=== PATIENT | female | born 1950 ===

== ENCOUNTER 2025-04-11 09:54 | Outpatient (AMB) | payer OTHER, MEDICAID, SELFPAY ==
--- NOTE | 2025-04-11 10:01 | A.OFFVIS_ITS ---
Intake Visit Reasons: Memory loss Allergies No Known Allergies Allergy (Verified 04/05/25 13:47) HPI Comments Details: This is a 74-year-old woman with a history of hypertension and hyperlipidemia who speaks Cuban and is here with her daughter for evaluation of forgetfulness and progressive dementia noted in the last 1 year. She has a strong family history of dementia in her mother, 4 maternal uncles and an older sister in the last year she has been noted due to have progressive forgetfulness. She needs reminders for her medications. She is unable to handle her finances. She eats fairly well and her weight is stable. She has disturbed sleep and wakes up and walks around in the night. She has some pains and worries a lot. She has some bladder control problems for which she is seeing a urologist. She recognizes family members that she sees frequently. She has not had any neurological workup so far. She has some difficulty walking because of right knee pain. [facility] Medical History (Updated 04/11/25 @ 10:15 by Lara Clancy MD) Palpitations Memory loss Urge incontinence Hypercholesteremia Hypertension Review of Systems Const Details: ?Sleep Difficulty getting to sleep??denies.??Difficulty maintaining sleep??denies?.?? Urge to move legs??denies.??Teeth grinding??denies.??Shouting or Kicking during sleep??denies.??Abnormal behavior during sleep??denies.??Excessive sleep??denies.??Snoring??denies.??Daytime sleepiness??denies.? General/Constitutional Change in appetite??denies.??Chills??denies.??Fatigue??denies.??Fever??denies.?? Weight gain??denies.??Weight loss??denies.? Ophthalmologic Blurred vision??denies.??Diminished visual acuity??denies.? ENT Stuffiness??denies.??Decreased hearing??denies.??Dry mouth??denies.??Ear pain??denies.??Nosebleed??denies.??Ringing in the ears??denies.??Sinus pain ??denies.??Sore throat??denies.??Swollen glands??denies.? Endocrine Cold intolerance??denies.??Excessive thirst??denies.??Frequent urination ??denies.??Heat intolerance??denies.? Respiratory Shortness of breath??denies.??Chest pain??denies.??Cough??denies.? Breast Breast lump??denies.??Nipple discharge??denies.? Cardiovascular Chest pain at rest??denies.??Chest pain with exertion??denies.??Claudication ??denies.??Fluid accumulation in the legs??denies.??Irregular heartbeat ??denies.??Palpitations??yes.? Gastrointestinal Abdominal pain??denies.??Constipation??denies.??Diarrhea??denies.??Heartburn ??denies.??Nausea??denies.??Rectal bleeding??denies.? Hematology Easy bruising??denies.??Prolonged bleeding??denies.? Genitourinary Frequent urination??denies.??Urgency??denies.??Incontinence??denies.??Erectile Dysfunction??denies.? Musculoskeletal Neck pain??denies.??Back pain??denies.??Muscle aches??denies.??Painful joints??denies.? Neurologic Difficulty swallowing??denies.??Balance difficulty??denies.??Coordination ??normal.??Difficulty speaking??denies.??Dizziness??denies.??Fainting ??denies.??Gait abnormality??denies.??Headache??denies.??Loss of strength ??denies.??Loss of use of extremity??denies.??Memory loss??yes.??Seizures ??denies.??Tics??denies.??Tingling/Numbness??denies.??Transient loss of vision ??denies.??Tremor??denies.? Psychiatric Anxiety??denies.??Auditory/visual hallucinations??denies.??Delusions ??denies.??Depressed mood??denies.??Stressors??denies.??Substance abuse ??denies.??Suicidal thoughts??denies.? Eyes Details: fatigue Card Reports irregular heart rhythm Neuro Reports confusion and Reports memory loss Psych Reports confusion and Reports memory loss Physical Exam Const General: confusion Orientation/consciousness: confusion Neuro Other: Mini Mental Status Exam Level of Consciousness:?Alert.? Orientation:?Does not Know correct year, month, date, knows day and season.?Not Know correct city, county and state. ? Registration:?Able to register 3 objects.?Unable to draw clock face Attention:?Serial 7's unable Recall:?Able to recall 2 out of 3 objects.? Language:?Normal spontaneous speech, fluency, repetition, naming, comprehension, reading, and writing.? Total Score:?20/30.? Neurological Abnormal neurological findings:??MMS 20/30 Mental Status:?Alert and oriented X person only.?Normal attention, affect.? Cranial Nerves:?Pupils are equal, round and reactive to light. Fundoscopy shows normal disc bilaterally. External occular muscles are intact. Visual jones are full, no ptosis. Face is symmetrical, no facial weakness or droop. Facial sensations are normal. Tongue protrudes in midline. Palate elevates symmetrically. Shoulder shrugging is normal.? Motor Examination:?Normal muscle tone, bulk and strength.?No atrophy or fasciculations.?No drift of the extended upper extremities.?Deep tendon reflexes are 2+.?Plantars are flexor.? Motor Strength:? Proximal Muscles (out of 5):?5 Distal Muscles (out of 5):?5 Neck Flexors (out of 5):?5 Neck Extensors (out of 5):?5 Deltoid (out of 5):?5 Biceps (out of 5):?5 Triceps (out of 5):?5 Serratus Anterior (out of 5):?5 Wrist Extensors (out of 5):?5 APB (out of 5):?5 Finger Spread (out of 5):?5 Ileopsoas (out of 5):?5 Quadriceps (out of 5):?5 Hamstrings (out of 5):?5 Tibialis Anterior (out of 5):?5 Peronei (out of 5):?5 EDB (out of 5):?5 Gastrocnemius (out of 5):?5 Straight Leg Raising:?90 degrees.? Sensory Exam:?Normal light touch, temperature, pinprick, vibration and joint-position sensations.?Rhomberg sign is absent.? Coordination:?No ataxia,?no titubation,?mpmglr-nh-yeqa, gvwm-zeqi-ctdi test, and rapid alternating movements were normal.? Gait Exam:?Within normal limits.? Cerebellar Signs:?Ylvgis-dl-rslm and doau-ra-yaoz is normal.?No dysdiadochokinesia.? Extrapyramidal System:?No tremor or?rigidity, normal facial expressions.?No bradykinesia. No bradyphrenia. Normal arm swing and posture. No propulsion or retropulsion.? Speech:?Normal,?no dysphasia or dysarthria.? General Examination GENERAL APPEARANCE:??normal,?in no acute distress?,?normal,?in no acute distress.? HEAD:??normocephalic,?atraumatic.? EYES:??sclera non-icteric,?conjunctiva clear.? EARS:??auditory canal clear,?tympanic membrane intact, clear.? NOSE:??no lesions.? ORAL CAVITY:??gums normal,?mucosa moist,?no lesions.? THROAT:??clear.? NECK/THYROID:??no cervical lymphadenopathy,?thyroid normal,?neck supple, full range of motion,?no carotid bruit.? SKIN:??no rashes,?no significant birthmarks.? HEART:??S1, S2 normal,?no murmurs?,?S1, S2 normal,?no murmurs.? LUNGS:??clear anteriorly and posteriorly?,?clear anteriorly and posteriorly.? CHEST:??no gross rib deformity,?clear to auscultation.? BACK:??normal exam of spine.? MUSCULOSKELETAL:??normal.? EXTREMITIES:??no edema?,?no edema.? PERIPHERAL PULSES:??normal.? PSYCH:??alert, oriented,?cognitive function intact,?cooperative with exam?,?alert, oriented,?cognitive function intact,?cooperative with exam.? General: confusion Assessment & Plan Assessment & Plan (1) Alzheimer dementia: Code(s): G30.9 - Alzheimer's disease, unspecified; F02.80 - Dementia in other diseases classified elsewhere, unspecified severity, without behavioral disturbance, psychotic disturbance, mood disturbance, and anxiety Category: Medical (2) Memory loss: Code(s): R41.3 - Other amnesia Category: Medical (3) Hypertension: Code(s): I10 - Essential (primary) hypertension Category: Medical Plan Work up for dementia, then consider adding Donepezil/ Memantine Orders: Orders MR head/brain wo con 6 Weeks F02.80 - Dementia in other diseases classified elsewhere, unspecified severity, without behavioral disturbance, psychotic disturbance, mood disturbance, and anxiety, G30.9 - Alzheimer's disease, unspe cified EEG electroencephalogram Today F02.80 - Dementia in other diseases classified elsewhere, unspecified severity, without behavioral disturbance, psychotic disturbance, mood disturbance, and anxiety, G30.9 - Alzheimer's disease, unspecified TSH reflex Free T4 Today R41.3 - Other amnesia Basic Metabolic Panel Today R41.3 - Other amnesia Vitamin B12 and Folate Today R41.3 - Other amnesia Coding Level of Care Code New Pt Level 5 (49185) Diagnoses Alzheimer dementia G30.9; F02.80 Memory loss R41.3 Hypertension I10
--- OUTSIDE RECORDS SUMMARY | 2025-04-11 10:32 | XMS_ITS | Clinical Summary ---
Author Organization 175 [facility] Address [address] [place] [address] Phone Care Team Providers Care Electronic Warfare Technical Name Role Phone Michael Amin MD Primary Care Provider [phone] Allergies No known active allergies Medications cyanocobalamin (VITAMIN B-12) 1,000 mcg tablet Take 1 tablet (1,000 mcg total) by mouth 1 (one) time each day. 30 each 11 11/20/2024 Active lisinopril (PRINIVIL,ZESTRI L) 40 mg tablet Take 1 tablet (40 mg total) by mouth 1 (one) time each day. 90 tablet 1 02/20/2025 Active rosuvastatin (CRESTOR) 20 mg tablet Take 1 tablet (20 mg total) by mouth 1 (one) time each day. 90 tablet 1 02/20/2025 Active Active Problems Problem Noted Date Diagnosed Date Mixed hyperlipidemia 03/01/2025 Primary hypertension 03/01/2025 Encounters Date Type Department Care Team Description 03/01/2025 10:00 AM EDT Office Visit Internal Medicine - [place] [address] [facility] [address] [place] [address] Michael Amin MD Medicare annual wellness visit, subsequent (Primary Dx); Other fatigue; Vitamin D deficiency; Other abnormal glucose; Routine general medical examination at a health care facility; Mixed hyperlipidemia; Primary hypertension; Encounter for screening mammogram for malignant neoplasm of breast; Postmenopausal state; Actinic keratosis from Last 3 Months Immunizations Name Administration Dates Next Due Pneumococcal conjugate 20 va lent (Prevnar 20, PCV 20) 2mo and older 03/01/2025 Tdap Tetanus diptheria acell ular pertussis (Boostrix; Adacel) 7yo and older 03/01/2025 Social History Tobacco Use Types Packs/Day Years Used Date Smoking Tobacco: Never Assessed Comments Unknown Sex and Gender Information Value Date Recorded Sex Assigned at Female 09/12/2024 12:33 PM EST Legal Sex Female 11:38 AM EDT Gender Identity Female 09/12/2024 12:33 PM EST Sexual Orientation Straight 03/05/2025 9: 31 AM EDT Last Filed Vital Signs Vital Sign Reading Time Taken Comments Blood Pressure 102/60 03/01/2025 10:02 AM EDT Pulse 79 03/01/2025 10:02 AM EDT Temperature 36.4 C (97.6 F) 11/16/2024 2:42 PM EDT Respiratory Rate - - Oxygen Saturation 98% 03/01/2025 10:02 AM EDT Inhaled Oxygen Concentration - - Weight 68.5 kg (151 lb) 03/01/2025 10:02 AM EDT Height 160 cm (5' 3 ) 11/16/2024 2:42 PM EDT Body Mass Index 26.75 11/16/2024 2:42 PM EDT Plan of Treatment Upcoming Encounters Date Type Department Care Team (Late st Contact Info) Description 04/24/2025 9:00 AM EDT Appointment [facility] Bone Density [address] [place] [phone] 05/22/2025 8:30 AM EDT Appointment [facility] Endoscopy [address] [place] [address] Leandro Butler DO 175 [facility] [address] [place] [id number] 09/03/2025 9:45 AM EST Office Visit Internal Medicine - [place] [address] [phone] Michael Amin MD [address] [address] Health Maintenance Due Date Last Done Comments Breast Cancer Screening 1950 COVID-19 Vaccine (#1) 1956 Zoster Vaccines (1 of 2) 1970 Colorectal Cancer Screening: Colonoscopy 06/24/2024 Hepatitis C Screening 06/24/2024 Osteoporosis Screening (Bone Density Screening) 06/24/2024 Influenza Vaccine (#1) 2025 Hypertension/CHF/CAD Annual BMP Blood Test 11/20/2025 11/20/2024 Falls Risk Assessment 03/01/2026 03/01/2025 , 03/01/2025 Medicare Annual Wellness Visit 03/01/2026 03/01/2025 Social Influencers of Health Screening 03/01/2026 03/01/2025 RSV Immunization Adult Patients (1 - 1-dose 75+ series) 2026 Cholesterol Screening (Lipid Panel) 11/20/2029 11/20/2024 DTaP,Tdap,and Td Vaccines (2 - Td or Tdap) 03/01/2035 03/01/2025 Depression Screening Completed 03/01/2025 Pneumococcal Vaccine: 50+ Years Completed 03/01/2025 HIB Vaccines Aged Out No longer eligi ble based on patient's age to complete this topic HPV Vaccines Aged Out No longer eligi ble based on patient's age to complete this topic Hepatitis A Vaccines Aged Out No long er eligible based on patient's age to complete this topic Hepatitis B Vaccines Aged Out No long er eligible based on patient's age to complete this topic IPV Vaccines Aged Out No longer eligi ble based on patient's age to complete this topic MMR Vaccines Aged Out No longer eligi ble based on patient's age to complete this topic Meningococcal ACWY Vaccine Aged Out N o longer eligible based on patient's age to complete this topic Meningococcal B Vaccine Aged Out No l onger eligible based on patient's age to complete this topic RSV Immunization Patients Under 20 months Aged Out No longer eligible b ased on patient's age to complete this topic Varicella Vaccines Aged Out No longer eligible based on patient's age to complete this topic Procedures Procedure Name Priority Date/Time Associated Diagnosis Comments COMPREHENSIVE METABOLIC PANEL Routine 11/20/2024 9:22 AM EDT Primary hypertension Hypercholesterolem ia Urge incontinence Memory loss Palpitation LIPID PANEL WITH REFLEX TO DIRECT LDL Routine 11/20/2024 9:22 AM EDT Primary hypertension Hypercholesterolem ia Urge incontinence Memory loss Palpitation from Last 3 Months or Most Recently Relevant to Health Maintenance Results * Lipid panel with reflex to direct LDL (11/20/2024 9:22 AM EDT) Cholesterol 182 0 - 200 mg/dL LAB CHEMISTRY METHOD 11/20/2024 1:18 PM EDT [facility] Triglycerides 81 0 - 150 mg/dL LAB CHEMISTRY METHOD 11/20/2024 1:18 PM EDT [facility] HDL 76 >=40 mg/dL LAB CHEMISTRY METHOD 11/20/2024 1:18 PM EDT [facility] LDL Calculated 90 0 - 100 mg/dL LAB CHEMISTRY METHOD 11/20/2024 1:18 PM EDT [facility] VLDL Cholesterol Luke 16.2 mg/dL LAB CHEMISTRY METHOD 11/20/2024 1:18 PM EDT [facility] Non HDL Chol. (LDL+VLDL) 106 <145 mg/dL LAB CHEMISTRY METHOD 11/20/2024 1:18 PM EDT [facility] Chol/HDL Ratio 2.4 0.0 - 4.4 LAB CHEMISTRY METHOD 11/20/2024 1:18 PM EDT [facility] Blood Venous blood specimen / Unknown Venipuncture / Unknown 11/20/2024 9:22 AM EDT 11/20/2024 10:48 AM EDT us Elder Lui MD LAB BLOOD ORDERABLES Final Resul t [facility] [address] [place] [address], [place] [phone] * Comprehensive metabolic panel (11/20/2024 9:22 AM EDT) Sodium 143 133 - 145 mmol/L LAB CHEMISTRY METHOD 11/20/2024 1:18 PM [facility] Potassium 4.3 3.5 - 5.5 mmol/L LAB CHEMISTRY METHOD 11/20/2024 1:18 PM [facility] Chloride 108 96 - 110 mmol/L LAB CHEMISTRY METHOD 11/20/2024 1:18 PM [facility] CO2 29 21 - 32 mmol/L LAB CHEMISTRY METHOD 11/20/2024 1:18 PM [facility] Anion Gap 6 3 - 11 LAB CHEMISTRY METHOD 11/20/2024 1:18 PM [facility] Glucose 90 70 - 100 mg/dL LAB CHEMISTRY METHOD 11/20/2024 1:18 PM [facility] BUN 14 5 - 25 mg/dL LAB CHEMISTRY METHOD 11/20/2024 1:18 PM [facility] Creatinine 0.96 0.50 - 1.10 mg/dL LAB CHEMISTRY METHOD 11/20/2024 1:18 PM [facility] eGFR 63 >=60 mL/min/1. 73m2 LAB CHEMISTRY METHOD 11/20/2024 1:18 PM [facility] Comment:Calculation based on the Chronic Kidney Disease Epidemiology Collaboration (CKD-EPI) equation refit without adjustment for race. BUN/Creatinine Ratio 14.6 LAB CHEMISTRY METHOD 11/20/2024 1:18 PM [facility] Calcium 9.2 8.5 - 10.5 mg/dL LAB CHEMISTRY METHOD 11/20/2024 1:18 PM [facility] AST (SGOT) 25 10 - 42 unit/L LAB CHEMISTRY METHOD 11/20/2024 1:18 PM [facility] ALT (SGPT) 28 10 - 60 unit/L LAB CHEMISTRY METHOD 11/20/2024 1:18 PM [facility] Alkaline Phosphatase 89 42 - 121 unit/L LAB CHEMISTRY METHOD 11/20/2024 1:18 PM EDT [facility] Total Protein 6.5 6.0 - 8.0 g/dL LAB CHEMISTRY METHOD 11/20/2024 1:18 PM EDT [facility] Albumin 3.5 3.2 - 5.0 g/dL LAB CHEMISTRY METHOD 11/20/2024 1:18 PM EDT [facility] Total Bilirubin 0.5 0.0 - 1.4 mg/dL LAB CHEMISTRY METHOD 11/20/2024 1:18 PM EDT [facility] Blood Venous blood specimen / Unknown Venipuncture / Unknown 11/20/2024 9:22 AM EDT 11/20/2024 10:48 AM EDT us Elder Lui MD LAB BLOOD ORDERABLES Final Resul t [facility] [address] [place] [address], from Last 3 Months or Most Recently Relevant to Health Maintenance Insurance [employer] MEDICARE ADVANTAGE on file MEDICAID - [place] Advance Directives * Full Code - Confirmed (Latest Code Status on File) Date Activated Date Inactivated Comments 03/01/2025 10:24 AM This code stat us was ascertained in the following way: Code status discussion: discussion with patient To update the patient's code status, place a code status order. Do not modify or discontinue any currently active code status orders. Care Teams Electronic Warfare Technical Relationship Specialty Start Date End Date Michael Amin MD [address] [place] [address] PCP - General 02/01/24
--- OUTSIDE RECORDS SUMMARY | 2025-04-11 10:32 | XMS_ITS | Patient Health Record ---
Author Organization [facility] Address [address] [place] [address] Care Team Providers Care Associate Professor Of Engineering Name Role Phone TERRY DON Unavailable [phone] Allergies No Known Allergies Reason For Referral No Information Medications Medication SIG (Take, Route, Frequency, Duration) Notes Start Date End Date Status Benzonatate 200 MG 1 capsule as needed Orally Three times a day; Duration: 10 days 09/15/2024 Active Paxlovid (300/100) 20 x 150 MG & 10 x 100MG 3 tablets Orally Twice a day; Duration: 5 day(s) 09/15/2024 Active Social History Tobacco Use: Social History Observation Description Date Details (start date - stop date) Never Smoker NA - NA Tobacco Control (Standard) Question Answer Notes Tobacco use: Nonsmoker Vital Signs Height 66 in 09/15/2024 Patient Reported Normal Blood Pressure Patient Reported Normal Temperature Weight 159 lbs 09/15/2024 Patient Reported Normal Blood Pressure Patient Reported Normal Temperature BMI 25.66 kg/m2 09/15/2024 Patient Reported Normal Blood Pressure Patient Reported Normal Temperature Encounters Encounter Location Date Provider Diagnosis [facility] [address] [place] [address] 09/15/2024 TERRY DON COVID-19 U07.1 Assessments Encounter Date Diagnosis (ICD Code) Assessment Notes Treatment Notes Treatment Clinical Notes Section Notes 09/15/2024 COVID-19 (ICD-10 - U07.1) TREATMENT PLAN: HIGHER RISK PATIENTS This is a higher risk patient with mild COVID symptoms for <5 days. The positive test is self reported from an over the counter test. There are no known major contraindications or medication interactions with paxlovid. Specific details of vaccination status and natural immune status unknown. The history provided is limited and medical decisions are made based on this information alone. If you are over the age of 65, you have never been vaccinated or revaccinated, have diabetes/lung disease/hypertension /heart disease or are obese or immunocomprised it is recommended to consider an antiviral. 1. Will prescribe paxlovid 300-100mg twice daily for 5 days. Please be aware if you have not given us all of your daily medications, there may be medication interactions that are serious with this medicine. Paxlovid is to be taken at the patients discretion and not a strong recommendation on my behalf. COVID for the vast majority of patients requires mainly supportive care, symptom control, hydration, rest. Please talk to your pharmacist about medication interactions. If you have kidney or liver disease, please let us know as the dosing of this medicine changes. Be aware this medication is FDA approved for patients with COVID with specific risk factors. There are risks of this medicine including side effects including but not limited to odd taste, diarrhea, GI symptoms, etc. 2. COVID is not treated with antibiotics. No indication for antibiotics is present here. Steroids are only indicated in specific higher risk patients that are hospitalized. 3. Ibuprofen 400-800mg every 8 hours for pain, fever, chills, body aches (if you are not on a blood thinner) (if not allergic). If you are on a blood thinner, take tylenol 500-1000mg every 6 hours as needed (if not allergic). 4. We can provide benzonatate 200mg every 8 hours or bromfed oral liquid for cough but both have similar efficiacy to over the counter options. 5. Can use over the counter cold/flu medicines for relief. Can use flonase 2 puffs per nostril as nasal steroid for inflammation relief (if not allergic). Cepachol or chloraseptic for sore throat (if not allergic). 6. If interested, we can provide albuterol 2 puffs every 4-6 hours for sypmtoms of wheezing/shortness of breath. 7. Recommended follow up in 3 days. If symptoms of shortness of breath, difficulty caring for self, chest pain, inability to eat, or any other progressive symptoms arise, please Female patients only note: Some antibiotics and other medications can reduce control effectiveness. Check with your pharmacist and consider using extra protection to prevent .PATIENT EDUCATION: COVID-19 What is COVID-19? COVID-19 is a disease caused by a type of coronavirus. This illness was first found in 2019 and has since spread worldwide (pandemic). Symptoms can range from mild, such as fever and body aches, to severe, including trouble breathing. COVID-19 can be deadly. Coronaviruses are a large group of viruses. Some types cause the common cold. Others cause more serious illnesses like Middle East respiratory syndrome (MERS) and severe acute respiratory syndrome (SARS). Follow-up care is a kingsley part of your treatment and safety. Be sure to make and go to all appointments, and call your doctor if you are having problems. It's also a good idea to know your test results and keep a list of the medicines you take. How can you self-isolate when you have COVID-19? If you have COVID-19, there are things you can do to help avoid spreading the virus to others. Stay home, and avoid contact with other people. Limit contact with people in your home. If possible, stay in a separate bedroom and use a separate bathroom. Wear a high-quality mask when you are around other people. Improve airflow. If you have to spend time indoors with others, open windows and doors. Or you can use a fan to blow air away from people and out a window. Avoid contact with pets and other animals. Cover your mouth and nose with a tissue when you cough or sneeze. Then throw it in the trash right away. Wash your hands often, especially after you cough or sneeze. Use soap and water, and scrub for at least 20 seconds. If soap and water aren't available, use an alcohol-based hand cmm programmer. Don't share personal household items. These include bedding, towels, cups and glasses, and eating utensils. Wash laundry in the warmest water allowed for the fabric type, and dry it completely. It's okay to wash other people's laundry with yours. Clean and disinfect your home. Use household apprentice architect and disinfectant wipes or sprays. Go to the CDC website at cdc.gov if you have questions. When can you end self-isolation for COVID-19? If you know or think that you have the virus, you will need to self-isolate. When you can be around other people you live with and leave home depends on whether you have symptoms. Important: Day 0 is the day your symptoms started or the day you tested positive. Day 1 is the day after your symptoms first started or your test was positive. If you tested positive but had no symptoms, it's safe to end isolation at the end of Day 5. But if you start to have symptoms, follow the recommendations below, and count your first day of symptoms as Day 0. If you have symptoms, when you can end isolation depends on how sick you were and your overall health. No matter what, you need to wait until your symptoms are getting better and you haven't had a fever for 24 hours while not taking medicines to lower the fever. Here's how long to isolate, based on your symptoms: If you were only a little sick: (This means you might have felt really bad but had no shortness of breath and never needed to be in the hospital.) You can end isolation at the end of Day 5. If you were more sick: (You had some shortness of breath or some trouble breathing but never needed to be in the hospital.) You can end isolation at the end of Day 10. If you were very sick and needed to be in the hospital, or if you have a weakened immune system: You can end isolation at the end of Day 10 or later. Talk to your doctor to find out when it's safe to end isolation. You may need a viral test. After you end isolation, if your symptoms come back or get worse: Restart your isolation at Day 0. Do this even if it happens after you took medicine for COVID. Avoid travel and stay away from people at high risk for serious disease for at least 10 days. Those who can't wear a mask because they are under 2 years old or have certain disabilities should isolate for at least 10 full days.FIRST ASYNCHRONOUS ACUTE CARE VISIT Acute Care Visit: All subsequent visits for your concern addressed today must be conducted via video consultation. Further Management: If your symptoms do not improve, consider scheduling a follow-up video visit for further assessment, or an in-person visit for a more comprehensive evaluation. 09/15/2024 Other Follow the treatment plan as indicated by the provider. Take any medications as prescribed. If you have any questions about your prescription, ask the pharmacist. This treatment plan is based on the information you have provided to us today. Incomplete disclosure of your medical history, past treatments, or current medications may affect the effectiveness of this treatment. Call 911 anytime you think you may need emergency care. For example, call if:You have severe trouble breathing.You have a seizure.Call your doctor now or seek immediate medical care if:You have trouble breathing.You have a fever with a stiff neck or a severe headache.You have pain or pressure in your chest or belly.You have a fever or cough that returns after getting better.You feel very sleepy, dizzy, or confused.You are not urinating.You have severe muscle pain.You have severe weakness, or you are unsteady.You have medical conditions that are getting worse.Watch closely for changes in your health, and be sure to contact your doctor if:You do not get better as expected.You are having a problem with your medicine. You participated in a [facility] request, considered an asynchronous visit where you provide your symptoms and medical history, and a treatment plan is formulated based on your submission. A treatment plan and patient education were provided based on your submission. If symptoms persist or worsen, you should seek in-person care or call 911 immediately for further evaluation. Plan Of Treatment No Information Insurance Providers Payer Name Payer Address Payer Phone Subscriber Number Group Number Insured Name Patient Relationship to Insured Coverage Start Date Coverage End Date [facility] FFS [address] [address] [place] [address] [id number] Maeve Singer Self - patient is the insured Medical (General) History Medical History History ICD Code Denies
== END 2025-04-11 10:34 | disposition home or self-care (01) ==
LOC: HO.HSM 09:54
PROVIDERS: PCP Internal Medicine; Visit Provider Psychiatry & Neurology Neurology
DX: G30.9 Alzheimer's disease, unspecified (principal); F02.80 Dementia in other diseases classified elsewhere, unspecified severity, without behavioral disturbance, psychotic disturbance, mood disturbance, and anxiety; R41.3 Other amnesia; I10 Essential (primary) hypertension
CPT/HCPCS: 99204

== ENCOUNTER 2025-04-11 09:54 | Outpatient (REF) | payer OTHER, MEDICAID, SELFPAY ==
[2025-04-11 12:14] LABS: Anion Gap 10 (12-20); Blood Urea Nitrogen 11 mg/dL (9-16); Calcium 9.2 mg/dL (8.4-10.2); Carbon Dioxide 30 mmol/L (22-29); Chloride 108 mmol/L (96-108); Estimated Glomerular Filt Rate 55; Potassium 4.4 mmol/L (3.3-5.1); Sodium 144 mmol/L (135-145)
[2025-04-11 12:36] LABS: Folate 11.6 ng/mL (> or = 4.0); Vitamin B12 845 pg/mL (200-900)
== END 2025-04-11 09:55 | disposition home or self-care (01) ==
LOC: HO.LAB 09:54
PROVIDERS: PCP Student in an Organized Health Care Education/Training Program; Visit Provider Psychiatry & Neurology Neurology
DX: R41.3 Other amnesia (principal); G30.9 Alzheimer's disease, unspecified; F02.80 Dementia in other diseases classified elsewhere, unspecified severity, without behavioral disturbance, psychotic disturbance, mood disturbance, and anxiety; I10 Essential (primary) hypertension
CPT/HCPCS: 36415; 80048; 82607; 82746; 84443

== ENCOUNTER 2025-04-20 09:35 | Outpatient (REF) | payer OTHER, MEDICAID, SELFPAY ==
--- OUTSIDE RECORDS SUMMARY | 2025-04-20 09:38 | XMS_ITS | Patient Health Record ---
Author Organization [facility] Address [address] [place] [address] Care Team Providers Care Senior J2Ee Developer Name Role Phone TERRY DON Unavailable [phone] Allergies No Known Allergies Reason For Referral [...] Temperature Encounters Encounter Location Date Provider Diagnosis [facility] [address] [place] [address] 09/15/2024 TERRY DON COVID-19 U07.1 Assessments Encounter [...] water aren't available, use an alcohol-based hand welfare aide. Don't share personal household items. These include bedding, towels, cups and glasses, and eating utensils. Wash laundry in the warmest water allowed for the fabric type, and dry it completely. It's okay to wash other people's laundry with yours. Clean and disinfect your home. Use household pulp drier firer and disinfectant wipes or sprays. Go to [...] Insured Coverage Start Date Coverage End Date [facility] FFS [address] [address] [place] [address] [id number] Maeve Singer Self - patient is the insured Medical (General) History Medical History History ICD Code Denies
--- OUTSIDE RECORDS SUMMARY | 2025-04-20 09:38 | XMS_ITS | Clinical Summary ---
Author Organization [facility] Address [address] [place] [address] Phone Care Team Providers Care Employee Wellness/Fitness Coordinator Name Role Phone Michael Amin MD Primary Care Provider [phone] Allergies No known active allergies Medications cyanocobalamin [...] AM EDT Office Visit Internal Medicine - [place] 175 [facility] [address] [place] [address] Michael Amin MD Medicare annual [...] Info) Description 04/24/2025 9:00 AM EDT Appointment [facility] Bone Density [address] [place] [phone] 05/22/2025 8:30 AM EDT Appointment [facility] Endoscopy [address] [place] [phone] Leandro Butler DO 175 [facility] [place] [address] [place] [address] 09/03/2025 9:45 AM EST Office Visit Internal Medicine - [place] [address] [phone] Michael Amin MD [address] [phone] Health Maintenance Due Date Last Done Comments [...] LAB CHEMISTRY METHOD 11/20/2024 1:18 PM EDT [facility] Triglycerides 81 0 - 150 mg/dL LAB CHEMISTRY METHOD 11/20/2024 1:18 PM EDT [facility] HDL 76 >=40 mg/dL LAB CHEMISTRY METHOD 11/20/2024 1:18 PM EDT [facility] LDL Calculated 90 0 - 100 mg/dL LAB CHEMISTRY METHOD 11/20/2024 1:18 PM EDT [facility] VLDL Cholesterol Luke 16.2 mg/dL LAB CHEMISTRY METHOD 11/20/2024 1:18 PM EDT [facility] Non HDL Chol. (LDL+VLDL) 106 <145 mg/dL LAB CHEMISTRY METHOD 11/20/2024 1:18 PM EDT [facility] Chol/HDL Ratio 2.4 0.0 - 4.4 LAB CHEMISTRY METHOD 11/20/2024 1:18 PM EDT [facility] Blood Venous blood specimen / Unknown Venipuncture / Unknown 11/20/2024 9:22 AM EDT 11/20/2024 10:48 AM EDT us Elder Lui MD LAB BLOOD ORDERABLES Final Resul t [facility] [address] [place] [address], [place] [phone] * Comprehensive metabolic panel (11/20/2024 9:22 AM EDT) Sodium 143 133 - 145 mmol/L LAB CHEMISTRY METHOD 11/20/2024 1:18 PM [facility] Potassium 4.3 3.5 - 5.5 mmol/L LAB CHEMISTRY METHOD 11/20/2024 1:18 PM [facility] Chloride 108 96 - 110 mmol/L LAB CHEMISTRY METHOD 11/20/2024 1:18 PM [facility] CO2 29 21 - 32 mmol/L LAB CHEMISTRY METHOD 11/20/2024 1:18 PM [facility] Anion Gap 6 3 - 11 LAB CHEMISTRY METHOD 11/20/2024 1:18 PM [facility] Glucose 90 70 - 100 mg/dL LAB CHEMISTRY METHOD 11/20/2024 1:18 PM [facility] BUN 14 5 - 25 mg/dL LAB CHEMISTRY METHOD 11/20/2024 1:18 PM [facility] Creatinine 0.96 0.50 - 1.10 mg/dL LAB CHEMISTRY METHOD 11/20/2024 1:18 PM [facility] eGFR 63 >=60 mL/min/1. 73m2 LAB CHEMISTRY METHOD 11/20/2024 1:18 PM [facility] Comment:Calculation based on the Chronic Kidney Disease Epidemiology Collaboration (CKD-EPI) equation refit without adjustment for race. BUN/Creatinine Ratio 14.6 LAB CHEMISTRY METHOD 11/20/2024 1:18 PM [facility] Calcium 9.2 8.5 - 10.5 mg/dL LAB CHEMISTRY METHOD 11/20/2024 1:18 PM [facility] AST (SGOT) 25 10 - 42 unit/L LAB CHEMISTRY METHOD 11/20/2024 1:18 PM [facility] ALT (SGPT) 28 10 - 60 unit/L LAB CHEMISTRY METHOD 11/20/2024 1:18 PM [facility] Alkaline Phosphatase 89 42 - 121 unit/L LAB CHEMISTRY METHOD 11/20/2024 1:18 PM EDT [facility] Total Protein 6.5 6.0 - 8.0 g/dL LAB CHEMISTRY METHOD 11/20/2024 1:18 PM EDT [facility] Albumin 3.5 3.2 - 5.0 g/dL LAB CHEMISTRY METHOD 11/20/2024 1:18 PM EDT [facility] Total Bilirubin 0.5 0.0 - 1.4 mg/dL LAB CHEMISTRY METHOD 11/20/2024 1:18 PM EDT [facility] Blood Venous blood specimen / Unknown Venipuncture / Unknown 11/20/2024 9:22 AM EDT 11/20/2024 10:48 AM EDT us Elder Lui MD LAB BLOOD ORDERABLES Final Resul t [facility] [address] [place] [address], [place] [phone] from Last 3 Months or Most Recently Relevant to Health Maintenance Insurance [facility] MEDICARE ADVANTAGE on file [place] - [place] [...] currently active code status orders. Care Teams Employee Wellness/Fitness Coordinator Relationship Specialty Start Date End Date Michael Amin MD [address] [place] [phone] PCP - General 02/01/24
--- NOTE | 2025-04-20 10:06 | EEG_ITS ---
Description: This is a routine waking EEG using the 10-20 electrode placement system. The waking background activity consists of low-voltage fast frequency seen diffusely intermixed with low-voltage posterior 9 hertz alpha frequency and some scattered bilateral theta frequencies. Drowsiness is characterized by diffuse theta slowing.? Photic stimulation is without activation.? Hyperventilation produces no change in the background activity. No focal, lateralizing or paroxysmal discharges are seen. Impression: This waking and drowsy EEG is considered mildly abnormal due to mild scattered theta slowing consistent with a mild encephalopathic process. MTDD
== END 2025-04-20 09:36 | disposition home or self-care (01) ==
LOC: HO.NEURO 09:35
PROVIDERS: PCP Student in an Organized Health Care Education/Training Program; Visit Provider Psychiatry & Neurology Neurology
DX: G30.9 Alzheimer's disease, unspecified (principal); F02.80 Dementia in other diseases classified elsewhere, unspecified severity, without behavioral disturbance, psychotic disturbance, mood disturbance, and anxiety
CPT/HCPCS: 95816

== ENCOUNTER → 2025-04-20 10:06 | Outpatient (BNV) | payer OTHER, MEDICAID, SELFPAY | PROVIDERS: PCP Student in an Organized Health Care Education/Training Program; Visit Provider Psychiatry & Neurology Neurology | DX: G30.9 Alzheimer's disease, unspecified (principal); F02.80 Dementia in other diseases classified elsewhere, unspecified severity, without behavioral disturbance, psychotic disturbance, mood disturbance, and anxiety | CPT/HCPCS: 95816 ==

== ENCOUNTER 2025-04-26 07:54 | Outpatient (REF) | payer OTHER, MEDICAID, SELFPAY ==
--- OUTSIDE RECORDS SUMMARY | 2025-04-24 08:45 | XMS_ITS | Encounter Summary ---
Author Organization [facility] Address [address] [place] [address] Care Team Providers Care Fire Sprinkler Installer Name Role Phone Michael Amin MD Primary Care Provider [phone] Reason for Referral * Imaging (Routine) - Authorized Specialty Diagnoses / Procedures Referred By Contac t Referred To Contact Radiology Diagnoses Medicare annual wellness visit, subsequent Postmenopausal state Procedures BD Bone Density DXA Axial Skeleton Michael Amin MD [address] [address] Phone: tel: fax: [address] [address] Phone: tel: Referral ID Status Reason Start Date Expiration Date V isits Requested Visits Authorized [id number] Authorized 03/01/2025 03/01/2026 1 1 Reason for Visit * Imaging (Routine) - Authorized Specialty Diagnoses / Procedures Referred By Contac t Referred To Contact Radiology Diagnoses Medicare annual wellness visit, subsequent Postmenopausal state Procedures BD Bone Density DXA Axial Skeleton Michael Amin MD 175 [facility] [address] [place] [phone] Phone: tel: fax: [address] [phone] Phone: tel: Referral ID Status Reason Start Date Expiration Date V isits Requested Visits Authorized [id number] Authorized 03/01/2025 03/01/2026 1 1 Encounter Details Date Type Department Care Team (Latest Contact Info) Description 04/24/2025 8:45 AM EDT - 04/24/2025 11:59 PM EDT Hospital Encounter [facility] Bone Density [address] [place] [phone] Medicare annual wellness visit, subsequent; Postmenopausal state Discharge Disposition: Home or Self Care Social History Tobacco Use Types Packs/Day Years Used Date Smoking Tobacco: Never Assessed Comments Unknown Sex and Gender Information Value Date Recorded Sex Assigned at Female 09/12/2024 12:33 PM EST Legal Sex Female 11:38 AM EDT Gender Identity Female 09/12/2024 12:33 PM EST Sexual Orientation Straight 03/05/2025 9: 31 AM EDT documented as of this encounter Medications at Time of Discharge cyanocobalamin (VITAMIN B-12) 1,000 mcg tablet Take 1 tablet (1,000 mcg total) by mouth 1 (one) time each day. 30 each 11 11/20/2024 11/20/2025 lisinopril (PRINIVIL,ZESTRIL ) 40 mg tablet Take 1 tablet (40 mg total) by mouth 1 (one) time each day. 90 tablet 1 02/20/2025 rosuvastatin (CRESTOR) 20 mg tablet Take 1 tablet (20 mg total) by mouth 1 (one) time each day. 90 tablet 1 02/20/2025 documented as of this encounter Discharge Disposition Disposition Code Departure Means Destination Home or Self Care documented in this encounter Plan of Treatment Upcoming Encounters Date Type Department Care Team (Late st Contact Info) Description 05/22/2025 8:[address] [facility] Endoscopy [address] [place] [phone] Leandro Butler DO [address] [place] [address] 09/03/2025 9:45 AM EST Office Visit Internal Medicine - [place] [address] [facility] [address] [place] [phone] Michael Amin MD [address] [place] [address] documented as of this encounter Procedures Procedure Name Priority Date/Time Associated Diagnosis Comments BD BONE DENSITY DXA AXIAL SKELETON Routine 04/24/2025 9:09 AM EDT Medicare annual wellness visit, subsequent Postmenopausal state documented in this encounter Results * BD Bone Density DXA Axial Skeleton (04/24/2025 9:09 AM EDT) Anatomical Region Laterality Modality Wrist, Hip, L-spine Bone Densito metry 04/24/2025 10:0 7 AM EDT Impressions 04/24/2025 10:08 AM EDT 1. Osteopenia. 2. FRAX analysis yields a 10-year probability of major osteoporotic fracture of 6.9% and a 10-year probability of hip fracture of 1.5%. Code 90974 -------- FINAL REPORT -------- Dictated By: Raf Tidwell Dictated Date: 04/24/2025 10:07 ET Assigned Physician: Raf Tidwell Reviewed and Electronically Signed By: Raf Tidwell Signed Date: 04/24/2025 10:08 ET Workstation ID: [id number] Transcribed By: Self Edit Transcribed Date: 04/24/2025 10:07 ET Narrative 04/24/2025 10:08 AM EDT HISTORY: The patient is a 74-year-old postmenopausal female with clinical concern for metabolic bone disease. FINDINGS: Dual energy x-ray absorptiometry of the lumbar spine and femurs is performed. The mean bone mineral density at L1-L4 is 1.253 gm/cm2 which is 106% of that of young normals and 126% of that of age matched controls. This yields a T-score of 0.6 and a Z-score of 2.2 and there is therefore no evidence of osteoporosis or osteopenia here. The mean bone mineral density of the femurs bilaterally is 0.870 gm/cm2 which is 86% of that of young normals and 107% of that of age matched controls. This yields a T-score of -1.1 and a Z-score of 0.5 which is diagnostic of osteopenia. The T-score of the right femoral neck is -1.9 and that of the left femoral neck is -1.4 which is diagnostic of osteopenia. Procedure Note Raf Tidwell MD - 04/24/2025 HISTORY: The patient is a 74-year-old postmenopausal female with clinicalconcern for metabolic bone disease. FINDINGS: Dual energy x-ray absorptiometry of the lumbar spine and femursis performed. The mean bone mineral density at L1-L4 is 1.253 gm/cm2 whichis 106% of that of young normals and 126% of that of age matched controls.This yields a T- score of 0.6 and a Z-score of 2.2 and there is thereforeno evidence of osteoporosis or osteopenia here. The mean bone mineral density of the femurs bilaterally is 0.870 gm/oz1okyta is 86% of that of young normals and 107% of that of age matchedcontrols. This yields a T-score of -1.1 and a Z-score of 0.5 which isdiagnostic of osteopenia. The T- score of the right femoral neck is -1.9and that of the left femoral neck is -1.4 which is diagnostic ofosteopenia. IMPRESSION: 1. Osteopenia. 2. FRAX analysis yields a 10-year probability of major osteoporoticfracture of 6.9% and a 10-year probability of hip fracture of 1.5%. Code 27419 -------- FINAL REPORT -------- Dictated By: Raf Tidwell Dictated Date: 04/24/2025 10:07 ET Assigned Physician: Raf Tidwell Reviewed and Electronically Signed By: Raf Tidwell Signed Date: 04/24/2025 10:08 ET Workstation ID: [id number] Transcribed By: Self Edit Transcribed Date: 04/24/2025 10:07 ET Michael Amin MD IM DXA PROCEDURES Final Result documented in this encounter Visit Diagnoses Diagnosis Medicare annual wellness visit, subsequent Postmenopausal state Asymptomatic postmenopausal status (age-related) (natural) documented in this encounter Additional Health Concerns Assessment Noted Time PHQ-9 Depression Total Score: 1 03/01/20 25 10:02 AM EDT documented as of this encounter Care Teams Fire Sprinkler Installer Relationship Specialty Start Date End Date Michael Amin MD [address] [place] [phone] PCP - General 02/01/24 documented as of this encounter
--- NOTE | ~2025-04-26 | MR_ITS ---
CLINICAL HISTORY: G30.9 - Alzheimers disease, unspecified --- Additional Notes or Special Instructions: cerebral microvascular disease MR Brain without gadolinium Comparison: None provided Findings: There is age-appropriate atrophy. Few minor areas of T2 and FLAIR hyperintensity are identified within the periventricular and deep white matter, not unexpected for a patient of this age. Mondragon-white differentiation is well preserved. No restricted diffusion. No midline shift or mass effect. No intracranial hemorrhage. Visualized flow voids are patent. No mondragon matter heterotopia. No intracranial hemorrhage. No calvarial lesions. IMPRESSION: No acute findings. Brain MRI within normal limits for patient's age. This document has been electronically signed by: Mahin Rodriguez MD on 04/27/2025 07:29:25
--- OUTSIDE RECORDS SUMMARY | 2025-04-26 07:59 | XMS_ITS | Clinical Summary ---
Author Organization [facility] Address [address] [place] [address] Phone Care Team Providers Care Video Operator Name Role Phone Michael Amin MD Primary Care Provider [phone] Allergies No known active allergies Medications cyanocobalamin [...] Encounters Date Type Department Care Team Description 04/24/2025 8:45 AM EDT - 04/24/2025 11:59 PM EDT Hospital Encounter [facility] Bone Density [address] [place] [address] Medicare annual wellness visit, subsequent; Postmenopausal state Discharge Disposition: Home or Self Care 03/01/2025 10:00 AM EDT Office Visit Internal Medicine [facility] [address] [facility] [address] [place] [address] Michael Amin MD Medicare annual [...] Info) Description 05/22/2025 8:30 AM EDT Appointment [facility] Endoscopy [address] [place] [address] Leandro Butler DO [address] [place] [address] 09/03/2025 9:45 AM EST Office Visit Internal Medicine - [place] [address] [facility] [address] [place] [phone] Michael Amin MD [address] [place] [address] Health Maintenance Due Date Last Done Comments Breast Cancer Screening 1950 COVID-19 Vaccine (#1) 1956 Zoster Vaccines (1 of 2) 1970 Colorectal Cancer Screening: Colonoscopy 06/24/2024 Hepatitis C Screening 06/24/2024 Influenza Vaccine (#1) 2025 Hypertension/CHF/CAD Annual BMP Blood Test 11/20/2025 11/20/2024 Falls Risk Assessment 03/01/2026 03/01/2025 , 03/01/2025 Medicare Annual Wellness Visit 03/01/2026 03/01/2025 Social Influencers of Health Screening 03/01/2026 03/01/2025 RSV Immunization Adult Patients (1 - 1-dose 75+ series) 2026 Cholesterol Screening (Lipid Panel) 11/20/2029 11/20/2024 DTaP,Tdap,and Td Vaccines (2 - Td or Tdap) 03/01/2035 03/01/2025 Osteoporosis Screening (Bone Density Screening) 04/24/2035 04/24/2025 Depression Screening Completed 03/01/2025 Pneumococcal Vaccine: 50+ [...] Medicare annual wellness visit, subsequent Postmenopausal state HIV 1, 2 ANTIBODY, P24 ANTIGEN WITH REFLEX TO DIFFERENTIATION Routine 04/24/2025 9:08 AM EDT Medicare annual wellness visit, subsequent VITAMIN D 25 HYDROXY Routine 04/24/2025 9:08 AM EDT Medicare annual wellness visit, subsequent Vitamin D deficiency HEMOGLOBIN A1C Routine 04/24/2025 9:08 AM EDT Medicare annual wellness visit, subsequent Other abnormal glucose COMPREHENSIVE METABOLIC PANEL Routine 11/20/2024 9:22 AM EDT Primary hypertension Hypercholesterolem ia Urge incontinence Memory loss Palpitation LIPID PANEL WITH REFLEX TO DIRECT LDL Routine 11/20/2024 9:22 AM EDT Primary hypertension Hypercholesterolem ia Urge incontinence Memory loss Palpitation from Last 3 Months or Most Recently Relevant to Health Maintenance Results * BD Bone Density DXA Axial Skeleton (04/24/2025 9:09 AM EDT) Anatomical Region Laterality Modality Wrist, Hip, L-spine Bone Densito metry 04/24/2025 10:0 7 AM EDT Impressions 04/24/2025 10:08 AM EDT 1. Osteopenia. 2. FRAX analysis yields a 10-year probability of major osteoporotic fracture of 6.9% and a 10-year probability of hip fracture of 1.5%. Code 58951 -------- FINAL REPORT -------- Dictated By: Raf Tidwell Dictated Date: 04/24/2025 10:07 ET Assigned Physician: Raf Tidwell Reviewed and Electronically Signed By: Raf Tidwell Signed Date: 04/24/2025 10:08 ET Workstation ID: [id number] Transcribed By: Self Edit Transcribed Date: 04/24/2025 [...] density of the femurs bilaterally is 0.870 gm/yq9prtzb is 86% of that of young normals [...] probability of hip fracture of 1.5%. Code 27842 -------- FINAL REPORT -------- Dictated By: Raf Tidwell Dictated Date: 04/24/2025 10:07 ET Assigned Physician: Raf Tidwell Reviewed and Electronically Signed By: Raf Tidwell Signed Date: 04/24/2025 10:08 ET Workstation ID: [id number] Transcribed By: Self Edit Transcribed Date: 04/24/2025 10:07 ET Michael Amin MD IMG DXA PROCEDURES Final Result * HIV 1,2 antibody, p24 antigen with reflex to differentiation (04/24/2025 9:08 AM EDT) Pathologist [facility] HIV Combo AB/AG Negative Negative LAB CHEMISTRY METHOD 04/24/2025 11:46 AM EDT [facility] Blood Venous blood specimen / Unknown Venipuncture / Unknown 04/24/2025 9:08 AM EDT 04/24/2025 9:53 AM EDT Narrative [facility] - 04/24/2025 11:46 AM EDT This assay is a 4th generation assay allowing for earlier detection of HIV infection by detecting the presence of the HIV-1 p24 antigen as well as the traditional antibodies to HIV type 1 (including group O) and type 2. Use of a 4th generation assay is the current CDC recommendation for HIV screening. Michael Amin MD LAB BLOOD ORDERABLES Final Resul t [facility] [address] [place] [address], [place] [phone] * Vitamin D 25 hydroxy (04/24/2025 9:08 AM EDT) Pathologist [facility] Vit D, 25-Hydroxy 78.4 30.0 - 80.0 ng/mL LAB CHEMISTRY METHOD 04/24/2025 11:06 AM EDT [facility] Blood Venous blood specimen / Unknown Venipuncture / Unknown 04/24/2025 9:08 AM EDT 04/24/2025 9:53 AM EDT Michael Amin MD LAB BLOOD ORDERABLES Final Resul t [facility] [address] [place] [address], [place] [phone] * Hemoglobin A1c (04/24/2025 9:08 AM EDT) Pathologist [facility] Hemoglobin A1C 6.2 <6.5 % LAB CHEMISTRY METHOD 04/24/2025 1:33 PM EDT [facility] Mean Bld Glu Estim. 131 mg/dL LAB CHEMISTRY METHOD 04/24/2025 1:33 PM EDT [facility] Blood Venous blood specimen / Unknown Venipuncture / Unknown 04/24/2025 9:08 AM EDT 04/24/2025 9:52 AM EDT Michael Amin MD LAB BLOOD ORDERABLES Final Resul t [facility] [address] [place] [address], * Lipid panel with reflex to direct LDL (11/20/2024 9:22 AM EDT) [facility] Cholesterol 182 0 - 200 mg/dL LAB CHEMISTRY METHOD 11/20/2024 1:18 PM EDT [facility] Triglycerides 81 0 - 150 mg/dL LAB CHEMISTRY METHOD 11/20/2024 1:18 PM EDT [facility] HDL 76 >=40 mg/dL LAB CHEMISTRY METHOD 11/20/2024 1:18 PM EDT [facility] LDL Calculated 90 0 - 100 mg/dL LAB CHEMISTRY METHOD 11/20/2024 1:18 PM EDT [facility] VLDL Cholesterol Luke 16.2 mg/dL LAB CHEMISTRY METHOD 11/20/2024 1:18 PM EDT [facility] Non HDL Chol. (LDL+VLDL) 106 <145 mg/dL LAB CHEMISTRY METHOD 11/20/2024 1:18 PM EDT [facility] Chol/HDL Ratio 2.4 0.0 - 4.4 LAB CHEMISTRY METHOD 11/20/2024 1:18 PM [facility] Blood Venous blood specimen / Unknown Venipuncture / Unknown 11/20/2024 9:22 AM EDT 11/20/2024 10:48 AM EDT us Elder Lui MD LAB BLOOD ORDERABLES Final Resul t [facility] [address] [place] [address], [place] [phone] * Comprehensive metabolic panel (11/20/2024 9:22 AM EDT) Sodium 143 133 - 145 mmol/L LAB CHEMISTRY METHOD 11/20/2024 1:18 PM [facility] Potassium 4.3 3.5 - 5.5 mmol/L LAB CHEMISTRY METHOD 11/20/2024 1:18 PM [facility] Chloride 108 96 - 110 mmol/L LAB CHEMISTRY METHOD 11/20/2024 1:18 PM [facility] CO2 29 21 - 32 mmol/L LAB CHEMISTRY METHOD 11/20/2024 1:18 PM [facility] Anion Gap 6 3 - 11 LAB CHEMISTRY METHOD 11/20/2024 1:18 PM [facility] Glucose 90 70 - 100 mg/dL LAB CHEMISTRY METHOD 11/20/2024 1:18 PM [facility] BUN 14 5 - 25 mg/dL LAB CHEMISTRY METHOD 11/20/2024 1:18 PM [facility] Creatinine 0.96 0.50 - 1.10 mg/dL LAB CHEMISTRY METHOD 11/20/2024 1:18 PM [facility] eGFR 63 >=60 mL/min/1. 73m2 LAB CHEMISTRY METHOD 11/20/2024 1:18 PM EDT [facility] Comment:Calculation based on the Chronic Kidney Disease Epidemiology Collaboration (CKD-EPI) equation refit without adjustment for race. BUN/Creatinine Ratio 14.6 LAB CHEMISTRY METHOD 11/20/2024 1:18 PM EDT [facility] Calcium 9.2 8.5 - 10.5 mg/dL LAB CHEMISTRY METHOD 11/20/2024 1:18 PM EDT [facility] AST (SGOT) 25 10 - 42 unit/L LAB CHEMISTRY METHOD 11/20/2024 1:18 PM EDT [facility] ALT (SGPT) 28 10 - 60 unit/L LAB CHEMISTRY METHOD 11/20/2024 1:18 PM EDT [facility] Alkaline Phosphatase 89 42 - 121 unit/L LAB CHEMISTRY METHOD 11/20/2024 1:18 PM EDT [facility] Total Protein 6.5 6.0 - 8.0 g/dL LAB CHEMISTRY METHOD 11/20/2024 1:18 PM EDT [facility] Albumin 3.5 3.2 - 5.0 g/dL LAB CHEMISTRY METHOD [facility] Total Bilirubin 0.5 0.0 - 1.4 mg/dL LAB CHEMISTRY METHOD 11/20/2024 1:18 PM EDT [facility] Blood Venous blood specimen / Unknown Venipuncture / Unknown 11/20/2024 9:22 AM EDT 11/20/2024 10:48 AM EDT us Elder Lui MD LAB BLOOD ORDERABLES Final Resul t [facility]) [facility] [address] [place] [address], from Last 3 Months or Most Recently [...] currently active code status orders. Care Teams Video Operator Relationship Specialty Start Date End Date Michael Amin MD [address] [place] [address] [address] [place] [phone] PCP - General 02/01/24
--- OUTSIDE RECORDS SUMMARY | 2025-04-26 07:59 | XMS_ITS | Patient Health Record ---
Author Organization [facility] Address [address] [place] [address] Care Team Providers Care Manager Sales Support Name Role Phone TERRY DON Unavailable [phone] Allergies No Known Allergies Reason For Referral [...] Temperature Encounters Encounter Location Date Provider Diagnosis [facility] [address] [place] [address] 09/15/2024 TERRY DON COVID-19 U07.1 Assessments Encounter [...] water aren't available, use an alcohol-based hand hairspring truer. Don't share personal household items. These include bedding, towels, cups and glasses, and eating utensils. Wash laundry in the warmest water allowed for the fabric type, and dry it completely. It's okay to wash other people's laundry with yours. Clean and disinfect your home. Use household instructional consultant and disinfectant wipes or sprays. Go to [...] Insured Coverage Start Date Coverage End Date [facility] FFS [address] [address] [place] [address] [id number] Maeve Singer Self - patient is the insured Medical (General) History Medical History History ICD Code Denies
== END 2025-04-26 07:55 | disposition home or self-care (01) ==
LOC: HO.MRI 07:54
PROVIDERS: PCP Student in an Organized Health Care Education/Training Program; Visit Provider Psychiatry & Neurology Neurology
DX: G30.9 Alzheimer's disease, unspecified (principal); F02.80 Dementia in other diseases classified elsewhere, unspecified severity, without behavioral disturbance, psychotic disturbance, mood disturbance, and anxiety
CPT/HCPCS: 70551

== ENCOUNTER → 2025-04-26 07:54 | Outpatient (BNV) | payer OTHER, MEDICAID, SELFPAY | PROVIDERS: PCP Student in an Organized Health Care Education/Training Program; Visit Provider Radiology Diagnostic Radiology | DX: G30.8 Other Alzheimer's disease (principal) | CPT/HCPCS: 70551 ==

== ENCOUNTER 2025-06-06 13:06 | Outpatient (AMB) | payer OTHER, MEDICAID, SELFPAY ==
--- NOTE | 2025-06-06 13:35 | A.OFFVIS_ITS ---
Intake Visit Reasons: 2M AD Allergies No Known Allergies Allergy (Verified 04/05/25 13:47) HPI Comments Details: Continues to have short term memory problems. She has a history of hypertension and hyperlipidemia who speaks Ukrainian and is here with her daughter for evaluation of forgetfulness and progressive dementia noted in the last 1 year. She has a strong family history of dementia in her mother, 4 maternal uncles and an older sister in the last year she has been noted due to have progressive forgetfulness. She needs reminders for her medications. She is unable to handle her finances. She eats fairly well and her weight is stable. She has disturbed sleep and wakes up and walks around in the night. She has some pains and worries a lot. She has some bladder control problems for which she is seeing a urologist. She recognizes family members that she sees frequently. She has not had any neurological workup so far. She has some difficulty walking because of right knee pain. [facility] Medical History (Updated 04/11/25 @ 10:15 by Lara Clancy MD) Palpitations Memory loss Urge incontinence Hypercholesteremia Hypertension Review of Systems Const Details: ?Sleep Difficulty getting to sleep??denies.??Difficulty maintaining sleep??denies?.?? Urge to move legs??denies.??Teeth grinding??denies.??Shouting or Kicking during sleep??denies.??Abnormal behavior during sleep??denies.??Excessive sleep??denies.??Snoring??denies.??Daytime sleepiness??denies.? General/Constitutional Change in appetite??denies.??Chills??denies.??Fatigue??denies.??Fever??denies.?? Weight gain??denies.??Weight loss??denies.? Ophthalmologic Blurred vision??denies.??Diminished visual acuity??denies.? ENT Stuffiness??denies.??Decreased hearing??denies.??Dry mouth??denies.??Ear pain??denies.??Nosebleed??denies.??Ringing in the ears??denies.??Sinus pain ??denies.??Sore throat??denies.??Swollen glands??denies.? Endocrine Cold intolerance??denies.??Excessive thirst??denies.??Frequent urination ??denies.??Heat intolerance??denies.? Respiratory Shortness of breath??denies.??Chest pain??denies.??Cough??denies.? Breast Breast lump??denies.??Nipple discharge??denies.? Cardiovascular Chest pain at rest??denies.??Chest pain with exertion??denies.??Claudication ??denies.??Fluid accumulation in the legs??denies.??Irregular heartbeat ??denies.??Palpitations??yes.? Gastrointestinal Abdominal pain??denies.??Constipation??denies.??Diarrhea??denies.??Heartburn ??denies.??Nausea??denies.??Rectal bleeding??denies.? Hematology Easy bruising??denies.??Prolonged bleeding??denies.? Genitourinary Frequent urination??denies.??Urgency??denies.??Incontinence??denies.??Erectile Dysfunction??denies.? Musculoskeletal Neck pain??denies.??Back pain??denies.??Muscle aches??denies.??Painful joints??denies.? Neurologic Difficulty swallowing??denies.??Balance difficulty??denies.??Coordination ??normal.??Difficulty speaking??denies.??Dizziness??denies.??Fainting ??denies.??Gait abnormality??denies.??Headache??denies.??Loss of strength ??denies.??Loss of use of extremity??denies.??Memory loss??yes.??Seizures ??denies.??Tics??denies.??Tingling/Numbness??denies.??Transient loss of vision ??denies.??Tremor??denies.? Psychiatric Anxiety??denies.??Auditory/visual hallucinations??denies.??Delusions ??denies.??Depressed mood??denies.??Stressors??denies.??Substance abuse ??denies.??Suicidal thoughts??denies.? Eyes Details: fatigue Card Reports irregular heart rhythm Neuro Reports confusion and Reports memory loss Psych Reports confusion and Reports memory loss Physical Exam Const General: confusion Orientation/consciousness: confusion Neuro Other: Mini Mental Status Exam Level of Consciousness:?Alert.? Orientation:?Does not Know correct year, not month, date, knows day and season.?Not Know correct city, county and state. ? Registration:?Able to register 3 objects.?Unable to draw clock face Attention:?Serial 7's unable Recall:?Able to recall 2 out of 3 objects.? Language:?Normal spontaneous speech, fluency, repetition, naming, comprehension, reading, and writing.? Total Score:?20/30.? Neurological Abnormal neurological findings:??MMS 20/30 Mental Status:?Alert and oriented X person only.?Normal attention, affect.? Cranial Nerves:?Pupils are equal, round and reactive to light. Fundoscopy shows normal disc bilaterally. External occular muscles are intact. Visual jones are full, no ptosis. Face is symmetrical, no facial weakness or droop. Facial sensations are normal. Tongue protrudes in midline. Palate elevates symmetrically. Shoulder shrugging is normal.? Motor Examination:?Normal muscle tone, bulk and strength.?No atrophy or fasciculations.?No drift of the extended upper extremities.?Deep tendon reflexes are 2+.?Plantars are flexor.? Motor Strength:? Proximal Muscles (out of 5):?5 Distal Muscles (out of 5):?5 Neck Flexors (out of 5):?5 Neck Extensors (out of 5):?5 Deltoid (out of 5):?5 Biceps (out of 5):?5 Triceps (out of 5):?5 Serratus Anterior (out of 5):?5 Wrist Extensors (out of 5):?5 APB (out of 5):?5 Finger Spread (out of 5):?5 Ileopsoas (out of 5):?5 Quadriceps (out of 5):?5 Hamstrings (out of 5):?5 Tibialis Anterior (out of 5):?5 Peronei (out of 5):?5 EDB (out of 5):?5 Gastrocnemius (out of 5):?5 Straight Leg Raising:?90 degrees.? Sensory Exam:?Normal light touch, temperature, pinprick, vibration and joint-position sensations.?Rhomberg sign is absent.? Coordination:?No ataxia,?no titubation,?swibsy-us-wmkz, yjym-zuxa-ojui test, and rapid alternating movements were normal.? Gait Exam:?Within normal limits.? Cerebellar Signs:?Ngefxh-gg-peid and egld-la-oowf is normal.?No dysdiadochokinesia.? Extrapyramidal System:?No tremor or?rigidity, normal facial expressions.?No bradykinesia. No bradyphrenia. Normal arm swing and posture. No propulsion or retropulsion.? Speech:?Normal,?no dysphasia or dysarthria.? General Examination GENERAL APPEARANCE:??normal,?in no acute distress?,?normal,?in no acute dis tress.? HEAD:??normocephalic,?atraumatic.? EYES:??sclera non-icteric,?conjunctiva clear.? EARS:??auditory canal clear,?tympanic membrane intact, clear.? NOSE:??no lesions.? ORAL CAVITY:??gums normal,?mucosa moist,?no lesions.? THROAT:??clear.? NECK/THYROID:??no cervical lymphadenopathy,?thyroid normal,?neck supple, full range of motion,?no carotid bruit.? SKIN:??no rashes,?no significant birthmarks.? HEART:??S1, S2 normal,?no murmurs?,?S1, S2 normal,?no murmurs.? LUNGS:??clear anteriorly and posteriorly?,?clear anteriorly and posteriorly.? CHEST:??no gross rib deformity,?clear to auscultation.? BACK:??normal exam of spine.? MUSCULOSKELETAL:??normal.? EXTREMITIES:??no edema?,?no edema.? PERIPHERAL PULSES:??normal.? PSYCH:??alert, oriented,?cognitive function intact,?cooperative with exam?,?alert, oriented,?cognitive function intact,?cooperative with exam.? General: confusion Results Reviewed Results Reviewed: Labs normal. 04/23 MRI of the brain normal 04/23 EEG:This waking and drowsy EEG is considered mildly abnormal due to mild scattered theta slowing consistent with a mild encephalopathic process. Assessment & Plan Assessment & Plan (1) Alzheimer dementia: Code(s): G30.9 - Alzheimer's disease, unspecified; F02.80 - Dementia in other diseases classified elsewhere, unspecified severity, without behavioral disturbance, psychotic disturbance, mood disturbance, and anxiety Category: Medical (2) Memory loss: Code(s): R41.3 - Other amnesia Category: Medical (3) Hypertension: Code(s): I10 - Essential (primary) hypertension Category: Medical Plan Work up for dementia negative. Add Donepezil followed by Memantine Medications: New donepezil 5 mg PO DAILY 30 tabs 2RF Coding Level of Care Code Est Pt Level 4 (37675) Diagnoses Alzheimer dementia G30.9; F02.80 Memory loss R41.3 Hypertension I10
== END 2025-06-06 13:45 | disposition home or self-care (01) ==
LOC: HO.HSM 13:06
PROVIDERS: PCP Internal Medicine; Visit Provider Psychiatry & Neurology Neurology
DX: G30.9 Alzheimer's disease, unspecified (principal); F02.80 Dementia in other diseases classified elsewhere, unspecified severity, without behavioral disturbance, psychotic disturbance, mood disturbance, and anxiety; R41.3 Other amnesia; I10 Essential (primary) hypertension
CPT/HCPCS: 99214